=== PATIENT | male | born 1965 | race Caucasian/White ===

== ENCOUNTER → 2018-10-01 | Outpatient (REF) | payer MEDICARE, MEDICAID ==
[2015-04-30 11:03] VITALS: BMI 24.2
[~2018-10-01] MED LIST: ACE325 PO; BEN5 PO; BENZ1 PO; COM14R INH; ESC10 PO; ESCI20TA38 PO; HYDR50CA47 PO; LAM100 PO; LEV88 PO; LEVO112T43 PO; MULT-1335 PO; MVM PO; MYLL PO; NIA500 PO; NICO4LOZ35 BC; NICOTINE PATCH; OMEG-11 PO; OMEP40CA79 PO; QUE100 PO; QUE25 PO; QUET300T17 PO; QUET300T18 PO; RIS1 PO; RISP-29 PO; RISP-34 PO; RISP3TAB78 PO; TRILI135PT PO; ZOL5 PO
== END ==
PROVIDERS: ATTEND Family Medicine
DX: E03.9 Hypothyroidism, unspecified (principal)
CPT/HCPCS: 84443